=== PATIENT | male | born 1995 | race Caucasian/White ===

== ENCOUNTER 2024-04-05 17:04 | Inpatient (IN) | payer OTHER, MEDICAID ==
--- NOTE | 2024-04-05 18:05 | ED ---
Psych HPI - General Source: patient, family, RN notes reviewed Mode of arrival: ambulatory <Shana Arevalo - Last Filed: 04/05/24 18:05> <Eliot Nelson - Last Filed: 04/10/24 21:37> - General Chief Complaint: Psychiatric Symptoms Stated Complaint: mental health Time Seen by Provider: 04/05/24 17:20 - History of Present Illness Initial Comments: Quick [id number] male presenting to emergency department for mental health evaluation. His mother states that patient was informed by police officials that he reports emergency department for evaluation where he will be petition. Patient was disturbing peace and causing disturbace. denies SI/HI (Shana Arevalo) 28-year-old male presenting for mental health evaluation. Patient was disturbing the peace with neighbors called the police regarding his behavior. His mother is accompanying him as well. Difficult to obtain meaningful history from the patient as he is displaying flight of ideas and tangential thinking. He denies any suicidal or homicidal ideation. No physical complaints at this time. Patient is being petition (Eliot Nelson) - Related Data Home Medications Medication Instructions Recorded Confirmed Naproxen 375 mg PO BID PRN 04/05/24 04/05/24 Naproxen Sodium [Aleve] 220 mg PO BID PRN 04/05/24 04/05/24 Allergies Allergy/AdvReac Type Severity Reaction Status Date / Time Milk Containing Products AdvReac Abdominal Verified 04/05/24 21:12 (Dairy) Pain [Dairy] Review of Systems ROS Other: All systems not noted in ROS Statement are negative. <Shana Arevalo - Last Filed: 04/05/24 18:05> ROS Other: All systems not noted in ROS Statement are negative. <Eliot Nelson - Last Filed: 04/10/24 21:37> ROS Statement: Those systems with pertinent positive or pertinent negative responses have been documented in the HPI. Past Medical History Past Medical History: Asthma Additional Past Medical History / Comment(s): closed head injury Past Surgical History: Orthopedic Surgery Past Psychological History: PTSD Smoking Status: Current every day smoker Past Alcohol Use History: Heavy, Occasional Past Drug Use History: Marijuana <Shana Arevalo - Last Filed: 04/05/24 18:05> General Exam Limitations: no limitations <Shana Arevalo - Last Filed: 04/05/24 18:05> General appearance: alert, in no apparent distress Head exam: Present: atraumatic, normocephalic Eye exam: Present: normal appearance Neck exam: Present: normal inspection. Absent: meningismus Respiratory exam: Absent: respiratory distress Neurological exam: Present: alert, oriented X3 Psychiatric exam: Absent: homicidal ideation, suicidal ideation Expanded Focused psych exam: Present: flight of ideas Skin exam: Present: normal color <Eliot Nelson - Last Filed: 04/10/24 21:37> - General Exam Comments Initial Comments: Visual Physical Exam Vital signs reviewed General: Well-appearing, nontoxic, no acute distress. Head: Normocephalic, atraumatic Eyes: PERRLA, EOMI ENT: Airway patent Chest: Nonlabored breathing Skin: No visual rash, normal skin tone Neuro: Alert and oriented 3 Musculoskeletal: No gross abnormalities (Shana Arevalo) Course Vital Signs 04/05/24 17:25 Temperature 98.5 F Pulse Rate 117 H Respiratory 18 Rate Blood Pressure 138/94 O2 Sat by Pulse 97 Oximetry Medical Decision Making <Shana Arevalo - Last Filed: 04/05/24 18:05> - Lab Data Result diagrams: 04/05/24 21:51 04/05/24 21:51 <Eliot Nelson - Last Filed: 04/10/24 21:37> - Medical Decision Making I completed the quick note portion of this chart signed Shana Arevalo PA-C (Shana Arevalo) Was pt. sent in by a medical professional or institution (NELY Robert, LEAD INFORMATICA DEVELOPER, urgent care, hospital, or senior care...) When possible be specific @ -No Did you speak to anyone other than the patient for history (EMS, parent, family, police, friend...)? What history was obtained from this source @ -Mother Did you review nursing and triage notes (agree or disagree)? Why? @ -I reviewed and agree with nursing and triage notes Were old charts reviewed (outside hosp., previous admission, EMS record, old EKG, old radiological studies, urgent care reports/EKG's, senior care records)? Report findings @ -No old charts were reviewed Differential Diagnosis (chest pain, altered mental status, abdominal pain women, abdominal pain men, vaginal bleeding, weakness, fever, dyspnea, syncope, headache, dizziness, GI bleed, back pain, seizure, CVA, palpatations, mental health, musculoskeletal)? @ -Differential Mental Health Depression, anxiety, bipolar, psychosis, schizophrenia, borderline personality, situational depression, adjustment disorder, behavioral disorder, brain tumor, malingering, substance abuse, encephalopathy, medication reaction, dementia, hypothyroidism, degenerative neurologic disorder, lupus.... This is not meant to be all-inclusive list EKG interpreted by me (3pts min.). @ -As above X-rays interpreted by me (1pt min.). @ -None done CT interpreted by me (1pt min.). @ -None done U/S interpreted by me (1pt. min.). @ -None done What testing was considered but not performed or refused? (CT, X-rays, U/S, labs)? Why? @ -None What meds were considered but not given or refused? Why? @ -None Did you discuss the management of the patient with other professionals (professionals i.e. , PA, LEAD INFORMATICA DEVELOPER, lab, RT, psych nurse, social service worker, rubber belt splicer, teacher, chief compliance officer, case management coordinator)? Give summary @ -EPS advises admission Was smoking cessation discussed for >3mins.? @ -No Was critical care preformed (if so, how long)? @ -No Were there social determinants of health that impacted care today? How? (Homelessness, low income, unemployed, alcoholism, drug addiction, transportation, low edu. Level, literacy, decrease access to med. care, intermediate, rehab)? @ -No Was there de-escalation of care discussed even if they declined (Discuss DNR or withdrawal of care, Hospice)? DNR status @ -No What co-morbidities impacted this encounter? (DM, HTN, Smoking, COPD, CAD, Cancer, CVA, ARF, Chemo, Hep., AIDS, mental health diagnosis, sleep apnea, morbid obesity)? @ -None Was patient admitted / discharged? Hospital course, mention meds given and route, prescriptions, significant lab abnormalities, going to OR and other pertinent info. @ -28-year-old male being petitioned for mental health ideation. Patient is medically cleared. After evaluation by EPS it is determined patient will be admitted for inpatient management. Undiagnosed new problem with uncertain prognosis? @ -No Drug Therapy requiring intensive monitoring for toxicity (Heparin, Nitro, Insulin, Cardizem)? @ -No Were any procedures done? @ -No Diagnosis/symptom? @ -Psychosis Acute, or Chronic, or Acute on Chronic? @ -Acute Uncomplicated (without systemic symptoms) or Complicated (systemic symptoms)? @ -Complicated Side effects of treatment? @ -No Exacerbation, Progression, or Severe Exacerbation? @ -No Poses a threat to life or bodily function? How? (Chest pain, USA, MD, pneumonia, PE, COPD, DKA, ARF, appy, cholecystitis, CVA, Diverticulitis, Homicidal, Suicidal, threat to staff... and all critical care pts) @ -Yes (Eliot Nelson) - Lab Data Lab Results 04/05/24 04/05/24 04/05/24 Range/Units 20:12 21:51 21:51 WBC 8.2 (3.8-10.6) k/uL RBC 4.90 (4.30-5.90) m/uL Hgb 15.8 (13.0-17.5) gm/dL Hct 46.9 (39.0-53.0) % MCV 95.6 (80.0-100.0) fL MCH 32.2 (25.0-35.0) pg MCHC 33.7 (31.0-37.0) g/dL RDW 12.0 (11.5-15.5) % Plt Count 289 (150-450) k/uL MPV 7.2 Neutrophils % 50 % Lymphocytes % 42 % Monocytes % 4 % Eosinophils % 2 % Basophils % 1 % Neutrophils # 4.1 (1.3-7.7) k/uL Lymphocytes # 3.4 (1.0-4.8) k/uL Monocytes # 0.4 (0-1.0) k/uL Eosinophils # 0.1 (0-0.7) k/uL Basophils # 0.1 (0-0.2) k/uL Sodium 138 (137-145) mmol/L Potassium 4.2 (3.5-5.1) mmol/L Chloride 99 (98-107) mmol/L Carbon Dioxide 30 (22-30) mmol/L Anion Gap 9 mmol/L BUN 8 L (9-20) mg/dL Creatinine 0.91 (0.66-1.25) mg/dL Est GFR (CKD-EPI)AfAm >90 (>60 ml/min/1.73 sqM) Est GFR (CKD-EPI)NonAf >90 (>60 ml/min/1.73 sqM) Glucose 123 H (74-99) mg/dL Calcium 9.5 (8.4-10.2) mg/dL Total Bilirubin 0.7 (0.2-1.3) mg/dL AST 33 (17-59) U/L ALT 21 (4-49) U/L Alkaline Phosphatase 66 (38-126) U/L Total Protein 8.4 H (6.3-8.2) g/dL Albumin 5.3 H (3.5-5.0) g/dL Urine Opiates Screen Not Detected (NotDetected) Ur Oxycodone Screen Not Detected (NotDetected) Urine Methadone Screen Not Detected (NotDetected) Ur Barbiturates Screen Not Detected (NotDetected) U Tricyclic Antidepress Not Detected (NotDetected) Ur Phencyclidine Scrn Not Detected (NotDetected) Ur Amphetamines Screen Not Detected (NotDetected) U Methamphetamines Scrn Not Detected (NotDetected) U Benzodiazepines Scrn Not Detected (NotDetected) Urine Cocaine Screen Not Detected (NotDetected) U Marijuana (THC) Screen Detected H (NotDetected) SARS-CoV-2 (PCR) (Not Detectd) 04/05/24 Range/Units 21:51 WBC (3.8-10.6) k/uL RBC (4.30-5.90) m/uL Hgb (13.0-17.5) gm/dL Hct (39.0-53.0) % MCV (80.0-100.0) fL MCH (25.0-35.0) pg MCHC (31.0-37.0) g/dL RDW (11.5-15.5) % Plt Count (150-450) k/uL MPV Neutrophils % % Lymphocytes % % Monocytes % % Eosinophils % % Basophils % % Neutrophils # (1.3-7.7) k/uL Lymphocytes # (1.0-4.8) k/uL Monocytes # (0-1.0) k/uL Eosinophils # (0-0.7) k/uL Basophils # (0-0.2) k/uL Sodium (137-145) mmol/L Potassium (3.5-5.1) mmol/L Chloride (98-107) mmol/L Carbon Dioxide (22-30) mmol/L Anion Gap mmol/L BUN (9-20) mg/dL Creatinine (0.66-1.25) mg/dL Est GFR (CKD-EPI)AfAm (>60 ml/min/1.73 sqM) Est GFR (CKD-EPI)NonAf (>60 ml/min/1.73 sqM) Glucose (74-99) mg/dL Calcium (8.4-10.2) mg/dL Total Bilirubin (0.2-1.3) mg/dL AST (17-59) U/L ALT (4-49) U/L Alkaline Phosphatase (38-126) U/L Total Protein (6.3-8.2) g/dL Albumin (3.5-5.0) g/dL Urine Opiates Screen (NotDetected) Ur Oxycodone Screen (NotDetected) Urine Methadone Screen (NotDetected) Ur Barbiturates Screen (NotDetected) U Tricyclic Antidepress (NotDetected) Ur Phencyclidine Scrn (NotDetected) Ur Amphetamines Screen (NotDetected) U Methamphetamines Scrn (NotDetected) U Benzodiazepines Scrn (NotDetected) Urine Cocaine Screen (NotDetected) U Marijuana (THC) Screen (NotDetected) SARS-CoV-2 (PCR) Not Detected (Not Detectd) Disposition <Shana Arevalo - Last Filed: 04/05/24 18:05> Time of Disposition: 23:46 <Eliot Nelson - Last Filed: 04/10/24 21:37> Clinical Impression: Psychosis Disposition: ADMITTED IP TO THIS [facility] Condition: Serious
[2024-04-05 21:06] LABS: Amphetamine Screen,Urine Not Detected (NotDetected); Barbiturate Screen,Urine Not Detected (NotDetected); Benzodiazepines Screen,Urine Not Detected (NotDetected); Cocaine Screen,Urine Not Detected (NotDetected); Methadone Screen, Urine Not Detected (NotDetected); Opiate Screen,Urine Not Detected (NotDetected); Oxycodone Screen, Urine Not Detected (NotDetected); Phencyclidine Screen,Urine Not Detected (NotDetected); Tricyclic Antidepressant,Urine Not Detected (NotDetected); Urn Cannabinoid Scrn Detected (NotDetected)
[2024-04-05 22:13] LABS: Basophils # (A) 0.1 k/uL (0-0.2); Basophils % (A) 1 %; Eosinophils # (A) 0.1 k/uL (0-0.7); Eosinophils % (A) 2 %; HCT 46.9 % (39.0-53.0); HGB 15.8 gm/dL (13.0-17.5); Lymphocytes # (A) 3.4 k/uL (1.0-4.8); Lymphocytes % (A) 42 %; MCH 32.2 pg (25.0-35.0); MCHC 33.7 g/dL (31.0-37.0); MCV 95.6 fL (80.0-100.0); Mean Platelet Volume 7.2; Monocytes # (A) 0.4 k/uL (0-1.0); Monocytes % (A) 4 %; Neutrophils # (A) 4.1 k/uL (1.3-7.7); Neutrophils % (A) 50 %; Platelet Count 289 k/uL (150-450); WBC 8.2 k/uL (3.8-10.6)
[2024-04-05 22:34] LABS: ALT 21 U/L (4-49); AST 33 U/L (17-59); African American GFR (CKD) >90 (>60 ml/min/1.73 sqM); Albumin 5.3 g/dL (3.5-5.0); Alkaline Phosphatase 66 U/L (38-126); Anion Gap 9 mmol/L; Blood Urea Nitrogen 8 mg/dL (9-20); Calcium 9.5 mg/dL (8.4-10.2); Carbon Dioxide 30 mmol/L (22-30); Chloride 99 mmol/L (98-107); Glucose 123 mg/dL (74-99); Non-African American GFR(CKD) >90 (>60 ml/min/1.73 sqM); Potassium 4.2 mmol/L (3.5-5.1); Sodium 138 mmol/L (137-145); Total Bilirubin 0.7 mg/dL (0.2-1.3); Total Protein 8.4 g/dL (6.3-8.2)
[2024-04-06] MEDS ORDERED: HALOPERIDOL LACTATE 5 MG/ML 1 ML VIAL IM PRN (00:12)
[2024-04-06] MEDS ORDERED: MAGNESIUM HYDROXIDE 2,400 MG/30 ML CUP PO PRN (00:12)
[2024-04-06] MEDS ORDERED: MAG HYDROX/AL HYDROX/SIMETH 355 ML BOTTLE PO PRN (00:12)
[2024-04-06] MEDS ORDERED: LORazepam 2 MG/ML INJ IM PRN (00:12)
[2024-04-06] MEDS: chlordiazePOXIDE 25 MG CAP PO SCH (06:13)
[2024-04-06 06:35] LABS: ALT 20 U/L (4-49); AST 31 U/L (17-59); Albumin 4.7 g/dL (3.5-5.0); Alkaline Phosphatase 68 U/L (38-126); Bilirubin, Delta 0.1 mg/dL (0.0-0.2); Bilirubin,Unconjugated 1.1 mg/dL (0.0-1.1); Total Bilirubin 1.2 mg/dL (0.2-1.3); Total Protein 7.2 g/dL (6.3-8.2)
[2024-04-06] MEDS: NICOTINE 14MG/24HR PATCH TRANSDERM SCH (09:04)
[2024-04-06] MEDS: THIAMINE 100 MG TAB PO SCH (09:04)
[2024-04-06] MEDS: FOLIC ACID 1 MG TAB PO SCH (09:04)
[2024-04-06] MEDS: MULTIVITAMINS, THERA 1 EACH TAB PO SCH (09:04)
[2024-04-06 11:36] LABS: Chol/HDL Ratio 1.95 Ratio; LDL Cholesterol,Calculated 73.2 mg/dL (0.0-131.0); VLDL Calculation 9.38 mg/dL (5.00-40.00)
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
[2024-04-06] MEDS: PALIPERIDONE 3 MG TAB.ER.24 PO SCH (12:28)
[2024-04-06] MEDS: IBUPROFEN 600 MG TAB PO PRN (17:26)
[2024-04-06] MEDS: LITHIUM CARBONATE 300 MG CAP PO SCH (21:31)
[2024-04-06] MEDS: traZODone HCL 50 MG TAB PO SCH (21:31)
--- NOTE | 2024-04-07 01:42 | P.CONS ---
History of Present Illness - Reason for Consult Consult date: 04/07/24 - History of Present Illness The patient is a 28-year-old male with a PMH of alcohol abuse, tobacco abuse, and marijuana abuse who presented to the emergency room after being petitioned for strange behavior. The patient was admitted to the mental health unit where he was seen and evaluated. Patient notes that he continues to drink 3-4 drinks of hard liquor daily. He also reports smoking a pack of cigarettes daily. Does report recreational marijuana use. Reports his last drink was just prior to admission and the day prior. He denied any additional complaints at the time of interview aside from his chronic shoulder and multiple other areas pain. Denied experiencing chest discomfort, shortness with, fever, chills, cough, nausea, vomiting, abdominal pain, diarrhea. Review of systems: Pertinent positives and negatives as discussed in HPI, a complete review of systems was performed and all other systems are negative. Physical examination: General: non toxic, no distress, appears at stated age, normal weight Derm: no unusual rashes/lesions, no unusual ecchymoses, warm, dry Head: atraumatic, normocephalic, symmetric Eyes: EOMI, no lid lag, anicteric sclera ENT: Nose and ears atraumatic, no thrush, no pharyngeal erythema Neck: trachea midline, supple Mouth: no lip lesion, mucus membranes moist Cardiovascular: S1S2 reg, no murmur, no edema Lungs: CTA bilateral, no rhonchi, no rales , no accessory muscle use Abdominal: soft, nontender to palpation, no guarding Ext: no gross muscle atrophy, no contractures, Neuro: No gross focal neuro deficits noted Psych: Alert, oriented, appropriate affect Assessment: Alcohol, tobacco, and marijuana abuse Mood disorder with possible psychosis Imaging: None performed Data Review: Reviewed with WBC count 8.2, hemoglobin 15.8, sodium 138, potassium 4.2, BUN 8, creatinine 0.91, and glucose 123. Plan: Continue to monitor for signs of withdrawal with CIWA protocol Advised on the importance of cessation from marijuana and tobacco abuse Defer management of psychosis to primary psychiatry service Thank you for allowing us to participate in the care of this patient. We will follow peripherally. Do not hesitate to contact us with questions. Someone can be reached from the [facility] hospitalist group at all hours of the day at [phone]. Past Medical History Past Medical History: Asthma Additional Past Medical History / Comment(s): closed head injury Past Surgical History: Orthopedic Surgery Past Psychological History: PTSD Smoking Status: Current every day smoker Past Alcohol Use History: Heavy, Occasional Past Drug Use History: Marijuana Medications and Allergies Home Medications Medication Instructions Recorded Confirmed Type Naproxen 375 mg PO BID PRN 04/05/24 04/05/24 History Naproxen Sodium [Aleve] 220 mg PO BID PRN 04/05/24 04/05/24 History Allergies Allergy/AdvReac Type Severity Reaction Status Date / Time Milk Containing Products AdvReac Abdominal Verified 04/05/24 21:12 (Dairy) Pain [Dairy] Physical Exam Vitals: Vital Signs Temp Pulse Resp BP Pulse Ox 04/06/24 16:55 97 20 131/91 96 04/06/24 05:41 98.0 F 75 16 137/91 99 Results CBC & Chem 7: 04/05/24 21:51 04/05/24 21:51 Labs: Abnormal Lab Results - Last 24 Hours (Table) 04/06/24 Range/Units 06:03 HDL Cholesterol 87.40 H (40.00-60.00) mg/dL
[2024-04-07 08:00] LABS: Appearance,Urine Clear (Clear); Bilirubin,Urine Negative (Negative); Blood,Urine Negative (Negative); Color,Urine Colorless; Glucose,Urine (UA) Negative (Negative); Ketones,Urine Negative (Negative); Leukocyte Esterase,Urine Negative (Negative); Nitrite,Urine Negative (Negative); PH, Urine 5.5 (5.0-8.0); Protein,Urine Negative (Negative); Specific Gravity,Urine 1.003 (1.001-1.035); Urobilinogen,Urine <2.0 mg/dL (<2.0)
--- NOTE | 2024-04-07 10:57 | P.PN ---
Progress Note - Text Progress Note Date: 04/07/24 Interval History: Patient was seen in his room, and was directable and agreeable to speak with junior copywriter at the bedside. Today, the patient was still presenting with flight of ideas. He states that he is ok, and attended a group this morning, which made him reflect on his spirituality. He needed to be redirected several times through the interview, he was going off topic several times. He reports fair sleep last night, and stated that his appetite is pretty good. He does claim that he is feeling quite emotional, and that he is somewhat paranoid. At this time patient denies any suicidal or homical ideations, intent or plan. Patient denies any auditory, visual hallucinations and denies any delusions. Patient denies any side effects from the medications and has been compliant with meds. MENTAL STATUS EXAM: General Appearance: Patient appears to be stated age is alert, [directable, and attempts to cooperate]. Patient appears to have improving hygiene and grooming. Dirty, greasy hair, hanging in his face. Unshaven face, wearing glasses. Dressed casually Behavior: Patient is standing without any agitated behavior. Appropriate eye contact. Needs redirected several times Speech: Patient's speech is fluent and nonpressured. Tangential, circumstantial. Mood/Affect: Patient reports their mood is [depressed], affect is congruent and constricted. improving mildly Suicidality/Homicidality: Patient denies having any homicidal ideation intent or plan. [Denies any suicidal ideations intent or plan] Perceptions: Patient denies visual hallucinations [and denies auditory hallucinations] Though content/process: thought process illogical, disorganized, flight of ideas, loose associations Memory and concentration: AOX3, grossly intact for the purposes of this session. Judgment and insight: [poor], improving mildly IMPRESSIONS: psychosis, unspecified HX TBI Alcohol use disorder nicotine dependance cannabis use disorder PLAN: -Patient is admitted under [involuntary] status to MHU for stabilization of psychiatric symptoms and safety. Patient has [not] signed [adult voluntary form or medication consent] and is placed in patient's chart. [A second certification was completed and along with petition will be filed for court.] -Medications : decrease Librium 20mg TID for alcohol withdrawl, with plan to taper down, change trazodone 50mg qhs PRN for sleep, increase Invega 3mg BID for psychosis/mood stabilization, [place] 300mg qhs for mood stabilization -Ativan [and Haldol] PRN for agitation/aggression -thiamine, MVM for etoh use] -CIWA protocol with Ativan PRN for ETOH withdrawal] -NRT - [nicotine patch] -SW on board for discharge planning. Encourage patient to participate in groups to work on coping skills. Will await deferral and court date.
[2024-04-07] MEDS: PALIPERIDONE 3 MG TAB.ER.24 PO SCH (21:14)
--- NOTE | 2024-04-08 15:29 | P.PN ---
Progress Note - Text Progress Note Date: 04/08/24 Interval History: Patient was seen in his room, and was directable and agreeable to speak with copy writer at the bedside. Patient displays a flight of ideas today and is difficult to interrupt at times. 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 He talks about jet fuel, soldering, uranium, "[id number] communistic system ", etc. When attempting to discuss about present situation, patient returns back to his thoughts about the army. However, he describes that he feels "physically safe "while he has been here. He says his sleep is fair. He endorses tolerating medications fairly well and is agreeable with continued titration. At this time patient denies any suicidal or homical ideations, intent or plan. Patient denies any auditory, visual hallucinations. He expresses paranoia. Patient denies any side effects from the medications and has been compliant with meds. MENTAL STATUS EXAM: General Appearance: Patient appears to be stated age is alert, directable, and attempts to cooperate. Patient appears to have improving hygiene and grooming. Dirty, greasy hair, hanging in his face. Unshaven face, wearing glasses. Dressed casually Behavior: Patient is standing without any agitated behavior. Appropriate eye contact. Needs redirected several times Speech: Patient's speech is hyperverbal and nearly pressured. Mood/Affect: Patient reports their mood is "fine", affect is congruent and constricted. improving mildly Suicidality/Homicidality: Patient denies having any homicidal ideation intent or plan. Denies any suicidal ideations intent or plan Perceptions: Patient denies visual hallucinations and denies auditory hallucinations Though content/process: thought process illogical, disorganized, flight of ideas, loose associations Memory and concentration: AOX3, grossly intact for the purposes of this session. Judgment and insight: poor, improving mildly IMPRESSIONS: psychosis, unspecified HX TBI Alcohol use disorder nicotine dependance cannabis use disorder PLAN: -Patient is admitted under [involuntary] status to MHU for stabilization of psychiatric symptoms and safety. Patient has [not] signed [adult voluntary form or medication consent] and is placed in patient's chart. [A second certification was completed and along with petition will be filed for court.] -Medications : decrease Librium to 10mg TID for alcohol withdrawl, with plan to taper down to 10 mg BID tomorrow, trazodone 50mg qhs PRN for sleep, Invega 3mg BID for psychosis/mood stabilization, [place] 300mg qhs for mood stabilization -Ativan [and Haldol] PRN for agitation/aggression -thiamine, MVM for etoh use] -CIWA protocol with Ativan PRN for ETOH withdrawal -NRT - [nicotine patch] -SW on board for discharge planning. Encourage patient to participate in groups to work on coping skills. Will await deferral and court date.
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
[2024-04-09] MEDS: PALIPERIDONE 3 MG TAB.ER.24 PO SCH (21:11)
[2024-04-09] MEDS: ACETAMINOPHEN TAB 325 MG TAB PO PRN (22:52)
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
[2024-04-10] MEDS: PALIPERIDONE 3 MG TAB.ER.24 PO SCH (13:03)
[2024-04-10] MEDS: SERTRALINE 50 MG TAB PO SCH (13:03)
[2024-04-10] MEDS: LORazepam 1 MG TAB PO PRN (14:49)
[2024-04-10] MEDS: haloperidoL 5 MG TAB PO PRN (14:50)
[2024-04-10] MEDS: MELATONIN 3 MG TABLET PO SCH (21:04)
--- NOTE | 2024-04-11 11:07 | P.PN ---
Progress Note - Text Progress Note Date: 04/11/24 Interval History: Patient was seen in his room, and was directable and agreeable to speak with dakota amaya. He reports that he is tired today. He did say that he got good sleep last night. He complains of back pain. He is less tangential today, and needed less redirection.he endorses a good appetite. He is attending some groups. He does state that in the mornings he is slightly confused, and has auditory hallucinations. The patient denies any suicidal or homicidal ideation, intent or plan. Patient denies any visual hallucinations. He expresses loss paranoia. He is somewhat disorganized in his thought process. Patient denies any side effects from the medications and has been compliant with meds. MENTAL STATUS EXAM: General Appearance: Patient appears to be stated age is alert, directable, and attempts to cooperate. Patient appears to have improving hygiene and grooming. D irty, greasy hair, hanging in his face. Unshaven face, wearing glasses. Dressed casually Behavior: Patient is seated without any agitated behavior. Appropriate eye contact. Needs redirected several times mildly improving Speech: Patient's speech is fluent Mood/Affect: Patient reports their mood is "emotional", affect is congruent and constricted. improving mildly Suicidality/Homicidality: Patient denies having any homicidal ideation intent or plan. Denies any suicidal ideations intent or plan Perceptions: Patient denies visual hallucinations and endorses auditory hallucinations Though content/process: thought process tangential disorganized, flight of ideas, loose associations mildly improving Memory and concentration: AOX3, grossly intact for the purposes of this session. Judgment and insight: poor, improving mildly IMPRESSIONS: psychosis, unspecified Hx TBI Alcohol use disorder nicotine dependance cannabis use disorder PLAN: -Patient is admitted under involuntary status to MHU for stabilization of psychiatric symptoms and safety. -Medications : trazodone 50mg qhs PRN for sleep, Invega to 3mg daily, +9mg qhs for psychosis/mood stabilization, [place] 300mg qhs for mood stabilization, Zoloft 50mg daily for mood/anxiety -Ativan [and Haldol] PRN for agitation/aggression -thiamine, MVM for etoh use] -NRT - [nicotine patch] -JULIO on board for discharge planning. Encourage patient to participate in groups to work on coping skills. Will await deferral and court date. JULIO will ask mother to come in tomorrow for visiting to compare to baseline level of functioning.
[2024-04-11] MEDS: SENNOSIDES-DOCUSATE SODIUM 1 EACH TAB PO SCH (13:23)
[2024-04-11] MEDS: MELATONIN 5 MG TABLET PO SCH (21:59)
[2024-04-11] MEDS: traZODone HCL 50 MG TAB PO PRN (22:00)
--- NOTE | 2024-04-12 13:04 | P.PN ---
Progress Note - Text Progress Note Date: 04/12/24 Interval History: Patient was seen in his room, and was directable and agreeable to speak with dakota echevarria. Patient finished his deferral with the [facility] team and his patent attorney today, ended up signing the deferral. He claims that he is doing a bit better today, appears to be in better spirits. He continues to ramble at times, less tangential, more organized. He claims that his mood and anxiety have been mildly improving. Appears to be more future oriented today. He claims that he will be calling his mother later on today to ask her to come for visitation to see him. Endorses good appetite. He is attending some groups. the patient denies any suicidal or homicidal ideation, intent or plan. Patient denies any visual hallucinations. No paranoia today. Patient denies any side effects from the medications and has been compliant with meds. MENTAL STATUS EXAM: General Appearance: Patient appears to be stated age is alert, directable, and attempts to cooperate. Patient appears to have improving hygiene and grooming. Dirty, greasy hair, hanging in his face. Unshaven face, wearing glasses. Dressed casually Behavior: Patient is seated without any agitated behavior. Appropriate eye contact. Needs redirected several times mildly improving Speech: Patient's speech is fluent Mood/Affect: Patient reports their mood is "betterl", affect is congruent and constricted. improving mildly Suicidality/Homicidality: Patient denies having any homicidal ideation intent or plan. Denies any suicidal ideations intent or plan Perceptions: Patient denies visual hallucinations and auditory hallucinations Though content/process: thought process tangential more organized today. Memory and concentration: AOX3, grossly intact for the purposes of this session. Judgment and insight: poor, improving mildly IMPRESSIONS: psychosis, unspecified Hx TBI Alcohol use disorder nicotine dependance cannabis use disorder PLAN: -Patient is admitted under involuntary status to MHU for stabilization of psychiatric symptoms and safety. -Medications : trazodone 50mg qhs PRN for sleep, Invega 3mg daily, +9mg qhs for psychosis/mood stabilization, [place] 300mg qhs for mood stabilization, Zoloft 50mg daily for mood/anxiety -Ativan and Haldol PRN for agitation/aggression -thiamine, MVM for etoh use] -NRT - nicotine patch -SW on board for discharge planning. Encourage patient to participate in groups to work on coping skills. patient deferred on 04/12. SW will ask mother to come in tomorrow for visiting to compare to baseline level of functioning.
--- NOTE | 2024-04-13 11:03 | P.PN ---
Progress Note - Text Progress Note Date: 04/13/24 Interval History: Patient was seen in his room, and was directable and agreeable to speak with dakota echevarria. he states that he is having some chronic arm and shoulder pain. appears to be more directable today. claims that his mother came to visit him yesterday and states that it went well. He claims that he is doing a bit better today over. He continues to ramble at times, less tangential, more organized today. He claims that his mood and anxiety have been mildly improving. Endorses good appetite. He is attending some groups. the patient denies any suicidal or homicidal ideation, intent or plan. Patient denies any visual hallucinations. No paranoia today. Patient denies any side effects from the medications and has been compliant with meds. we spoke about the long-acting injection however patient would prefer to remain on the MENTAL STATUS EXAM: General Appearance: Patient appears to be stated age i pills at this time.s alert, directable, and attempts to cooperate. Patient appears to have improving hygiene and grooming. Dirty, greasy hair, hanging in his face. Unshaven face, wearing glasses. Dressed casually Behavior: Patient is seated without any agitated behavior. Appropriate eye contact. more directable, less bizzare. Speech: Patient's speech is fluent Mood/Affect: Patient reports their mood is "a bit better", affect is congruent and constricted. improving mildly Suicidality/Homicidality: Patient denies having any homicidal ideation intent or plan. Denies any suicidal ideations intent or plan Perceptions: Patient denies visual hallucinations and auditory hallucinations Though content/process: thought process tangential more organized today Memory and concentration: AOX3, grossly intact for the purposes of this session Judgment and insight: chronically poor, improving mildly IMPRESSIONS: psychosis, unspecified Hx TBI Alcohol use disorder nicotine dependance cannabis use disorder PLAN: -Patient is admitted under involuntary status to MHU for stabilization of psychiatric symptoms and safety. -Medications : trazodone 50mg qhs PRN for sleep, Invega 3mg daily + 9mg qhs for psychosis/mood stabilization, [place] 300mg qhs for mood stabilization, Zoloft 50mg daily for mood/anxiety. [employer] offered transition to long-acting injection of Invega [place] however patient would prefer to be on the pills at this time. -Ativan and Haldol PRN for agitation/aggression -thiamine, MVM for etoh use -NRT - nicotine patch -SW on board for discharge planning. Encourage patient to participate in groups to work on coping skills. patient deferred on 04/12. SW waiting on patient's mother to call back regarding patient's visitation yesterday and also his baseline. Will likely discharge early next week Wednesday versus Wednesday if patient continues to improve.
[2024-04-14 06:51] VITALS: RESP 18
--- NOTE | 2024-04-15 11:16 | P.PN ---
Progress Note - Text Interval history: Patient was seen [wandering the hallways] and was directable and agreeable to speak with health underwriter. states that medications causing some constipation. At this time patient denies any suicidal or homicidal ideations intent or plan. Denies any Auditory or visual hallucinations. Mental status exam: General Appearance: [Patient appears to be stated age is alert, directable, and cooperative.] Behavior: [No agitated behavior. Patient is calm and directable] Speech: Patient's speech is fluent and nonpressured. Mood/Affect: Mood is improving mildly, affect is congruent and constricted. Suicidality/Homicidality: Patient denies having any suicidal or homicidal ideation intent or plan. Perceptions: Patient denies any auditory or visual hallucinations. Though content/process: [There is no evidence of any delusional thought content and thought process is linear and goal-directed.] Memory and concentration: AOX3, grossly intact for the purposes of this session Judgment and insight: improving mildly Assessment/Plan: Continue with current diagnosis. Patient continues to meet criteria for inpatient psychiatric admission for symptom stabilization and safety.[Patient will be maintained on current psychotropic medication regimen.] Monitor for medication compliance and for any psychotropic medication side effects. Will continue to monitor ongoing response to treatment. Encouraged participation in milieu.
--- NOTE | 2024-04-16 13:15 | P.PN ---
Progress Note - Text Interval history: Patient was seen [wandering the hallways] and was directable and agreeable to speak with assembly instructions writer. speaks about several topics including yoga, spirituality, and physics. At this time patient denies any suicidal or homicidal ideations intent or plan. Denies any Auditory or visual hallucinations. Patient denies any side effects from the medications and has been compliant with meds. Mental status exam: General Appearance: [Patient appears to be older thanstated age is alert, directable, and cooperative.] Behavior: [No agitated behavior. Patient is calm and directable] Speech: hyperverbal Mood/Affect: Mood is improving mildly, affect is congruent and constricted. Suicidality/Homicidality: Patient denies having any suicidal or homicidal ideation intent or plan. Perceptions: Patient denies any auditory or visual hallucinations. Though content/process: [There is no evidence of any delusional thought content and thought process is linear and goal-directed.] Memory and concentration: AOX3, grossly intact for the purposes of this session Judgment and insight: improving mildly Assessment/Plan: Continue with current diagnosis. Patient continues to meet criteria for inpatient psychiatric admission for symptom stabilization and safety.[Patient will be maintained on current psychotropic medication regimen.] Monitor for medication compliance and for any psychotropic medication side effects. Will continue to monitor ongoing response to treatment. Encouraged participation in milieu.
[2024-04-17 07:27] VITALS: BP 125/89; PULSE 78; TEMP 97
--- NOTE | 2024-04-17 10:03 | P.PN ---
Progress Note - Text Progress Note Date: 04/14/24 Interval History: Patient was seen in his room, and was directable and agreeable to speak with dakota echevarria in the office. He states that he is having a good day today. He reports that it is the best day he has had in a while. He states that he is feeling more rational. He claims that he had problems falling asleep last night, but once he journaled, he felt a bit better. He continues to ramble at times, less tangential, more organized today. He claims that his mood and anxiety have been improving. Endorses good appetite. He is attending some groups. the patient denies any suicidal or homicidal ideation, intent or plan. Patient denies any visual hallucinations. No paranoia today. Patient denies any side effects from the medications and has been compliant with meds. MENTAL STATUS EXAM: General Appearance: Patient appears to be stated age is alert, directable, and attempts to cooperate. Patient appears to have improving hygiene and grooming. Unshaven face, wearing glasses. Dressed casually Behavior: Patient is seated without any agitated behavior. Appropriate eye contact. more directable, less bizzare. Speech: Patient's speech is fluent Mood/Affect: Patient reports their mood is "good", affect is congruent and constricted. improving mildly Suicidality/Homicidality: Patient denies having any homicidal ideation intent or plan. Denies any suicidal ideations intent or plan Perceptions: Patient denies visual hallucinations and auditory hallucinations Though content/process: thought process is less tangential more organized today Memory and concentration: AOX3, grossly intact for the purposes of this session Judgment and insight: chronically poor, improving mildly IMPRESSIONS: psychosis, unspecified Hx TBI Alcohol use disorder nicotine dependance cannabis use disorder PLAN: -Patient is admitted under involuntary status to MHU for stabilization of psychiatric symptoms and safety. -Medications : trazodone 50mg qhs PRN for sleep, Invega 3mg daily + 9mg qhs for psychosis/mood stabilization, [place] 300mg qhs for mood stabilization, Zoloft 50mg daily for mood/anxiety. -Ativan and Haldol PRN for agitation/aggression -thiamine, MVM for etoh use -Check [place] level Wednesday morning -NRT - nicotine patch -SW on board for discharge planning. Encourage patient to participate in groups to work on coping skills. patient deferred on 04/12. Will likely discharge early next week, Wednesday if patient continues to improve.
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
== END 2024-04-17 13:44 | disposition home or self-care (01) | DRG 885 ==
LOC: EC 17:04 → 3MHU 04-06 00:08
PROVIDERS: ADMIT Psychiatry & Neurology Psychiatry; ATTEND Psychiatry & Neurology Psychiatry
DX: F29 Unspecified psychosis not due to a substance or known physiological condition (principal); R45.851 Suicidal ideations; F10.10 Alcohol abuse, uncomplicated; F12.10 Cannabis abuse, uncomplicated; F17.210 Nicotine dependence, cigarettes, uncomplicated; F22 Delusional disorders; Z11.52 Encounter for screening for COVID-19; F32.A Depression, unspecified; F41.9 Anxiety disorder, unspecified; F39 Unspecified mood [affective] disorder; F43.10 Post-traumatic stress disorder, unspecified; J45.909 Unspecified asthma, uncomplicated; K59.00 Constipation, unspecified; Z79.899 Other long term (current) drug therapy; Z87.820 Personal history of traumatic brain injury; Z91.011 Allergy to milk products; Z71.41 Alcohol abuse counseling and surveillance of alcoholic; Z71.51 Drug abuse counseling and surveillance of drug abuser; Z71.6 Tobacco abuse counseling
CPT/HCPCS: 36415; 80053; 80061; 80076; 80178; 80306; 81003; 82075; 83036; 84443; 85025; 87635; 99285